=== PATIENT | male | born 1930 | race African-American/Black ===

== ENCOUNTER 2019-01-04 08:18 | Inpatient (IN) ==
[2019-01-04] MEDS ORDERED: NITROGLYCERIN 2% OINT 1 INCH/GM PACK TOP STA (09:49)
[2019-01-04] MEDS ORDERED: METOPROLOL TARTRATE 5 MG/5 ML VIAL IV STA (10:26)
[2019-01-04] MEDS ORDERED: ASPIRIN 325 MG TABLET PO ONE (10:44)
[2019-01-04] MEDS ORDERED: niCARdipine 25 MG/10 ML VIAL IV ONE (11:00)
[2019-01-04 11:16] LABS: Apearance,Urine CLEAR (Clear); Bacteria,Urine Occasional /HPF (Few); Bilirubin,Urine Negative (Negative); Blood, Urine Small mg/dL (Negative); Glucose,Urine (UA) Negative (Negative); Ketones,Urine Negative (Negative); Nitrite,Urine Negative (Negative); Protein,Urine Negative; RBC,Urine 6 /HPF (0-4); Urine Color Colorless (Yellow); Urine Specific Gravity 1.005 (1.001-1.035); Urine Urobilinogen < 2.0 EU/DL (0.2-1.0)
[2019-01-04] MEDS: niCARdipine INJ 25 MG in SODIUM CHLORIDE 0.9% 240 ML IV PRN ×2 (11:25→15:45)
[2019-01-04] MEDS ORDERED: DOCUSATE SODIUM 100 MG CAPSULE PO PRN (12:24)
[2019-01-04] MEDS: ENOXAPARIN 40 MG/0.4 ML SYRINGE SUBCUT SCH (12:53)
[2019-01-04 13:04] LABS: Risk Ratio 3.51; VLDL CHOLESTEROL 14.8 MG/DL
[2019-01-04] MEDS: SIMVASTATIN 10 MG TABLET PO SCH (21:26)
[2019-01-05 04:12] LABS: Basophils % 0.6 % (0.0-0.8); Eosinophils # 0.2 10*3/uL (0.0-0.87); Eosinophils % 3.4 % (0.00-10.9); Hematocrit 34.6 VOL% (42.0-52.0); Hemoglobin 10.8 GM/DL (14.0-18.0); Immature Granulocytes % 0.2 %; Immature Granulocytes Absolute 0.01 #; Lymphocytes # 1.5 10*3/uL (1.4-4.0); Lymphocytes % 31.9 % (21.2-54.2); Mean Corpuscular HGB Conc 31.2 GM/DL (32-36); Mean Corpuscular Hemoglobin 28 PG (27-34); Mean Corpuscular Volume 88.7 FL (87-102); Mean Platelet Volume 12.4 FL (9.6-12.0); Monocytes # 0.6 10*3/uL (0.11-0.8); Monocytes % 11.6 % (1.7-12.7); Neutrophils # 2.5 10*3/uL (1.4-7.4); Neutrophils % 52.3 % (38.7-73.9); Platelet Count 171 T/CUMM (130-400); Red Cell Distribution Width 17.2 % (9.3-17.3); White Blood Count 4.7 T/CUMM (4-12)
[2019-01-05 04:50] LABS: Alanine Aminotransferase < 9 U/L (16-61); Albumin 3.1 G/DL (3.4-5.0); Alkaline Phosphatase 95 U/L (45-117); Aspartate Amino Transferase 10 U/L (0-37); Blood Urea Nitrogen 17 MG/DL (7-18); Calcium 8.1 MG/DL (8.5-10.1); Glucose 77 MG/DL (74-106); Osmolality,Calculated 281.3 MOS/KG (273-304); Potassium 3.2 MMOL/L (3.5-5.1); Sodium 141 MMOL/L (136-145); Total Protein 7.9 G/DL (6.4-8.3)
[2019-01-05] MEDS: LEVOTHYROXINE 25 MCG TABLET PO SCH (06:03)
[2019-01-05] MEDS: PANTOPRAZOLE 40 MG TABLET PO SCH (11:07)
[2019-01-05] MEDS: ASPIRIN 325 MG TABLET PO SCH (11:07)
[2019-01-05] MEDS: NIFEdipine 10 MG CAPSULE PO SCH ×2 (14:26→17:39)
[2019-01-05] MEDS: ENOXAPARIN 40 MG/0.4 ML SYRINGE SUBCUT SCH (14:26)
[2019-01-05] MEDS ORDERED: SPIRONOLACTONE 25 MG TABLET PO SCH (15:30)
[2019-01-05] MEDS ORDERED: hydrALAZINE 25 MG TABLET PO PRN (16:52)
[2019-01-05] MEDS: SIMVASTATIN 10 MG TABLET PO SCH (22:03)
[2019-01-06] MEDS: NIFEdipine 10 MG CAPSULE PO SCH ×4 (00:40→20:27)
[2019-01-06 04:55] LABS: Basophils % 0.4 % (0.0-0.8); Eosinophils # 0.3 10*3/uL (0.0-0.87); Eosinophils % 5.3 % (0.00-10.9); Hematocrit 34.1 VOL% (42.0-52.0); Immature Granulocytes % 0.2 %; Immature Granulocytes Absolute 0.01 #; Lymphocytes # 1.8 10*3/uL (1.4-4.0); Lymphocytes % 37.8 % (21.2-54.2); Mean Corpuscular HGB Conc 32.3 GM/DL (32-36); Mean Corpuscular Hemoglobin 28 PG (27-34); Mean Corpuscular Volume 87.2 FL (87-102); Monocytes # 0.5 10*3/uL (0.11-0.8); Neutrophils # 2.1 10*3/uL (1.4-7.4); Neutrophils % 45.3 % (38.7-73.9); Platelet Count 167 T/CUMM (130-400); Red Blood Count 3.91 MC/CUMM (3.8-5.5); Red Cell Distribution Width 17.1 % (9.3-17.3); White Blood Count 4.7 T/CUMM (4-12)
[2019-01-06 05:05] LABS: Alanine Aminotransferase < 6 U/L (16-61); Alkaline Phosphatase 90 U/L (45-117); Aspartate Amino Transferase 10 U/L (0-37); Blood Urea Nitrogen 24 MG/DL (7-18); Glucose 86 MG/DL (74-106); Osmolality,Calculated 283.3 MOS/KG (273-304); Potassium 3.2 MMOL/L (3.5-5.1); Sodium 141 MMOL/L (136-145); Total Protein 7.8 G/DL (6.4-8.3)
[2019-01-06] MEDS: LEVOTHYROXINE 25 MCG TABLET PO SCH (06:20)
[2019-01-06] MEDS ORDERED: POTASSIUM CHLORIDE RIDER 10 MEQ in PREMIX 1 EACH IV PRN (07:53)
[2019-01-06] MEDS: SPIRONOLACTONE 25 MG TABLET PO SCH (08:40)
[2019-01-06] MEDS: PANTOPRAZOLE 40 MG TABLET PO SCH (08:40)
[2019-01-06] MEDS: POTASSIUM CHLORIDE 20 MEQ TABLET PO PRN ×4 (08:40→15:05)
[2019-01-06] MEDS: ASPIRIN 325 MG TABLET PO SCH (08:40)
[2019-01-06] MEDS: ENOXAPARIN 40 MG/0.4 ML SYRINGE SUBCUT SCH (12:20)
[2019-01-06] MEDS: ALLOPURINOL 100 MG TABLET PO SCH (12:50)
[2019-01-06] MEDS ORDERED: NIFEdipine 10 MG CAPSULE PO SCH (15:00)
[2019-01-06] MEDS: hydrALAZINE 25 MG TABLET PO SCH ×2 (15:01→20:24)
[2019-01-06] MEDS: SIMVASTATIN 10 MG TABLET PO SCH (20:24)
[2019-01-07] MEDS: LEVOTHYROXINE 25 MCG TABLET PO SCH (06:01)
[2019-01-07 06:34] LABS: Basophils % 0.8 % (0.0-0.8); Eosinophils # 0.3 10*3/uL (0.0-0.87); Eosinophils % 5.3 % (0.00-10.9); Hematocrit 34.2 VOL% (42.0-52.0); Hemoglobin 10.7 GM/DL (14.0-18.0); Immature Granulocytes % 0.2 %; Immature Granulocytes Absolute 0.01 #; Lymphocytes # 1.7 10*3/uL (1.4-4.0); Lymphocytes % 35.1 % (21.2-54.2); Mean Corpuscular HGB Conc 31.3 GM/DL (32-36); Mean Corpuscular Hemoglobin 28 PG (27-34); Mean Corpuscular Volume 88.4 FL (87-102); Mean Platelet Volume 11.4 FL (9.6-12.0); Monocytes # 0.6 10*3/uL (0.11-0.8); Monocytes % 11.8 % (1.7-12.7); Neutrophils # 2.2 10*3/uL (1.4-7.4); Neutrophils % 46.8 % (38.7-73.9); Platelet Count 155 T/CUMM (130-400); Red Blood Count 3.87 MC/CUMM (3.8-5.5); Red Cell Distribution Width 17.1 % (9.3-17.3); White Blood Count 4.8 T/CUMM (4-12)
[2019-01-07 06:49] LABS: Alanine Aminotransferase < 9 U/L (16-61); Alkaline Phosphatase 91 U/L (45-117); Aspartate Amino Transferase 12 U/L (0-37); Blood Urea Nitrogen 28 MG/DL (7-18); Glucose 100 MG/DL (74-106); Osmolality,Calculated 280.7 MOS/KG (273-304); Sodium 138 MMOL/L (136-145); Total Protein 7.7 G/DL (6.4-8.3)
[2019-01-07] MEDS: hydrALAZINE 25 MG TABLET PO SCH (08:51)
[2019-01-07] MEDS: SPIRONOLACTONE 25 MG TABLET PO SCH (08:51)
[2019-01-07] MEDS: ASPIRIN 325 MG TABLET PO SCH (08:51)
[2019-01-07] MEDS: NIFEdipine 10 MG CAPSULE PO SCH (08:51)
[2019-01-07] MEDS: PANTOPRAZOLE 40 MG TABLET PO SCH (08:51)
[2019-01-07] MEDS: ALLOPURINOL 100 MG TABLET PO SCH (08:51)
[2019-01-07] MEDS: ENOXAPARIN 40 MG/0.4 ML SYRINGE SUBCUT SCH (12:00)
[2019-01-07 13:29] VITALS: BP 151/87
== END 2019-01-07 14:15 | disposition home or self-care (01) | DRG 69 ==
LOC: N.ED 08:18 → N.EDINP 09:59 → N.ICU 15:45 → N.5E 01-06 14:03
PROVIDERS: ADMIT Internal Medicine; ATTEND Internal Medicine

== ENCOUNTER 2021-06-02 20:10 | Inpatient (IN) ==
[2021-06-02 23:58] LABS: Basophils % 0.6 % (0.0-0.8); Eosinophils # 0.9 10*3/uL (0.0-0.87); Hematocrit 27.3 VOL% (42.0-52.0); Hemoglobin 8.4 GM/DL (14.0-18.0); Immature Granulocytes % 0.6 %; Immature Granulocytes Absolute 0.04 #; Lymphocytes # 0.7 10*3/uL (1.4-4.0); Lymphocytes % 10.1 % (21.2-54.2); Mean Corpuscular HGB Conc 30.8 GM/DL (32-36); Mean Corpuscular Volume 96.8 FL (87-102); NRBC # 0.03 10*3/uL; Neutrophils % 71.7 % (38.7-73.9); Platelet Count 89 T/CUMM (130-400); Red Blood Count 2.82 MC/CUMM (3.8-5.5); Red Cell Distribution Width 22.1 % (9.3-17.3); White Blood Count 7.2 T/CUMM (4-12)
[2021-06-03 00:13] LABS: Calcium 6.3 MG/DL (8.5-10.1); Potassium 3.8 MMOL/L (3.5-5.1)
[2021-06-03] MEDS ORDERED: DEXTROSE 50% 25 GM/50 ML VIAL IV PRN (00:17)
[2021-06-03] MEDS ORDERED: GLUCAGON 1 MG VIAL IM PRN (00:17)
[2021-06-03] MEDS ORDERED: ACETAMINOPHEN 325 MG TABLET PO PRN (00:17)
[2021-06-03] MEDS ORDERED: ONDANSETRON 4 MG/2 ML VIAL IV PRN (00:17)
[2021-06-03 00:36] LABS: Band Neutrophils 1 % (0-10); Eosinophils 14 % (0-10); Hypochromasia Slight; Lymphocytes 5 % (20-55); Platelet Estimate Decreased; Segmented Neutrophils 77 % (50-85); Total Cells Counted 100
[2021-06-03] MEDS: LACTATED RINGERS 1,000 ML IV SCH ×2 (04:35→14:52)
[2021-06-03 05:40] LABS: Basophils # 0.1 10*3/uL (0.0-0.2); Basophils % 0.9 % (0.0-0.8); Eosinophils % 13.7 % (0.00-10.9); Hematocrit 26.8 VOL% (42.0-52.0); Hemoglobin 8.5 GM/DL (14.0-18.0); Immature Granulocytes % 0.8 %; Immature Granulocytes Absolute 0.06 #; Lymphocytes # 0.8 10*3/uL (1.4-4.0); Lymphocytes % 10.2 % (21.2-54.2); Mean Corpuscular HGB Conc 31.7 GM/DL (32-36); Mean Corpuscular Volume 95.4 FL (87-102); Monocytes % 5.3 % (1.7-12.7); NRBC # 0.04 10*3/uL; Neutrophils % 69.1 % (38.7-73.9); Platelet Count 83 T/CUMM (130-400); Red Blood Count 2.81 MC/CUMM (3.8-5.5); Red Cell Distribution Width 21.8 % (9.3-17.3); White Blood Count 7.6 T/CUMM (4-12)
[2021-06-03 06:08] LABS: Eosinophils 12 % (0-10); Lymphocytes 9 % (20-55); Platelet Estimate Decreased; Segmented Neutrophils 76 % (50-85); Total Cells Counted 100
[2021-06-03 06:26] LABS: Thyroid Stimulating Hormone 0.621 uIU/ml (0.358-3.74)
[2021-06-03 07:04] LABS: % Iron Saturation 17.7 % (18-50)
[2021-06-03] MEDS ORDERED: HEPARIN 5,000 UNIT/1 ML VIAL SUBCUT SCH (09:00)
[2021-06-03] MEDS: ASPIRIN CHEW 81 MG TABLET PO SCH (09:50)
[2021-06-03 10:20] LABS: Bacteria,Urine Occasional /HPF (Few); Bilirubin,Urine Negative (Negative); Blood, Urine Large mg/dL (Negative); Glucose,Urine (UA) Negative (Negative); Hyaline Casts,Urine 14 /LPF (0-3); Ketones,Urine Negative (Negative); Mucus,Urine Occasional /LPF (Occasional); Nitrite,Urine Negative (Negative); Protein,Urine 100 MG/DL; RBC,Urine 80 /HPF (0-4); Urine Appearance CLEAR (Clear); Urine Color Yellow (Yellow); Urine Specific Gravity 1.011 (1.001-1.035); Urine Urobilinogen < 2.0 EU/DL (0.2-1.0)
[2021-06-03] MEDS: FERRIC GLUCONATE COMPLEX 125 MG in SODIUM CHLORIDE 0.9% 100 ML IV SCH (15:11)
[2021-06-04] MEDS: LACTATED RINGERS 1,000 ML IV SCH ×3 (02:37→15:37)
[2021-06-04 03:16] LABS: Basophils # 0.1 10*3/uL (0.0-0.2); Basophils % 0.8 % (0.0-0.8); Eosinophils # 0.8 10*3/uL (0.0-0.87); Hematocrit 26.6 VOL% (42.0-52.0); Hemoglobin 8.5 GM/DL (14.0-18.0); Immature Granulocytes % 0.8 %; Immature Granulocytes Absolute 0.05 #; Lymphocytes # 0.7 10*3/uL (1.4-4.0); Lymphocytes % 10.5 % (21.2-54.2); Mean Corpuscular Volume 94.7 FL (87-102); Monocytes % 5.6 % (1.7-12.7); NRBC # 0.04 10*3/uL; Neutrophils % 70.3 % (38.7-73.9); Platelet Count 54 T/CUMM (130-400); Red Blood Count 2.81 MC/CUMM (3.8-5.5); Red Cell Distribution Width 22.2 % (9.3-17.3); White Blood Count 6.7 T/CUMM (4-12)
[2021-06-04 03:42] LABS: Albumin 2.1 G/DL (3.4-5.0); Osmolality,Calculated 316.4 MOS/KG (273-304); Potassium 3.4 MMOL/L (3.5-5.1)
[2021-06-04 03:43] LABS: Bilirubin,Total 0.6 MG/DL (0.20-1.00); Calcium 5.9 MG/DL (8.5-10.1); Osmolality,Calculated 316.4 MOS/KG (273-304); Potassium 3.3 MMOL/L (3.5-5.1); Total Protein 5.2 G/DL (6.4-8.2)
[2021-06-04 03:45] LABS: Parathyroid Hormone Intact 373.8 PG/ML (18.4-80.1)
[2021-06-04 03:52] LABS: Eosinophils 9 % (0-10); Lymphocytes 8 % (20-55); Segmented Neutrophils 81 % (50-85); Total Cells Counted 100
[2021-06-04 03:53] LABS: Hypochromasia 1+; Microcytosis 1+; Ovalocytes Slight; Platelet Estimate Decreased
[2021-06-04 04:18] LABS: Risk Ratio 4.71; VLDL Cholesterol 28.8 MG/DL
[2021-06-04] MEDS: LEVOTHYROXINE 25 MCG TABLET PO SCH (06:06)
[2021-06-04 06:57] LABS: Protein/Creatinine Ratio,Urine 1.1 RATIO
[2021-06-04] MEDS ORDERED: POTASSIUM CHLORIDE 20 MEQ TABLET PO ONE (07:20)
[2021-06-04 08:51] LABS: Total Protein (Chem) 5.3 G/DL (6.4-8.3)
[2021-06-04] MEDS ORDERED: CHOLECALCIFEROL 1,000 UNIT TABLET PO SCH (09:00)
[2021-06-04] MEDS: ASPIRIN CHEW 81 MG TABLET PO SCH (09:48)
[2021-06-04 10:18] LABS: Albumin (SPE) 2.7 G/DL (3.2-5.3); Albumin (SPE) Rel % 51.6 %; Alpha 1 (SPE) 0.3 G/DL (0.1-0.4); Alpha 2 (SPE) 0.8 G/DL (0.4-1.0); Alpha 2 (SPE) Rel % 15.9 %; Beta (SPE) 0.5 G/DL (0.5-1.1); Beta (SPE) Rel % 8.8 %; Gamma (SPE) Rel % 18.7 %
[2021-06-04] MEDS: FERRIC GLUCONATE COMPLEX 125 MG in SODIUM CHLORIDE 0.9% 100 ML IV SCH (10:43)
[2021-06-04] MEDS: MEGESTROL 400 MG/10 ML UDCUP PO SCH ×2 (16:56→21:05)
[2021-06-04] MEDS: OLANZapine 5 MG TABLET PO SCH (21:06)
[2021-06-05] MEDS: LACTATED RINGERS 1,000 ML IV SCH ×2 (02:15→17:03)
[2021-06-05 05:57] LABS: Basophils # 0.1 10*3/uL (0.0-0.2); Eosinophils # 0.7 10*3/uL (0.0-0.87); Eosinophils % 9.9 % (0.00-10.9); Hematocrit 28.7 VOL% (42.0-52.0); Hemoglobin 8.8 GM/DL (14.0-18.0); Immature Granulocytes % 0.9 %; Immature Granulocytes Absolute 0.06 #; Lymphocytes % 14.1 % (21.2-54.2); Mean Corpuscular HGB Conc 30.7 GM/DL (32-36); Mean Corpuscular Volume 96.6 FL (87-102); Monocytes % 8.9 % (1.7-12.7); NRBC # 0.16 10*3/uL; Neutrophils % 65.2 % (38.7-73.9); Red Blood Count 2.97 MC/CUMM (3.8-5.5); Red Cell Distribution Width 22.8 % (9.3-17.3); White Blood Count 6.7 T/CUMM (4-12)
[2021-06-05 06:02] LABS: Platelet Count 54 T/CUMM (130-400)
[2021-06-05 06:18] LABS: Eosinophils 4 % (0-10); Hypochromasia 1+; Lymphocytes 12 % (20-55); Microcytosis 1+; Nucleated Red Blood Cells 4 (0-5); Platelet Estimate Decreased; Segmented Neutrophils 76 % (50-85); Total Cells Counted 100
[2021-06-05] MEDS: LEVOTHYROXINE 25 MCG TABLET PO SCH (06:33)
[2021-06-05 06:43] LABS: Potassium 4.1 MMOL/L (3.5-5.1)
[2021-06-05 06:56] LABS: Immunoglobulin A 220 MG/DL (70-400); Immunoglobulin G 976 MG/DL (700-1600); Immunoglobulin M 42 MG/DL (40-230)
[2021-06-05] MEDS ORDERED: MAGNESIUM SULF RIDER 2 GM/50 ML PREMIX IV ONE (07:17)
[2021-06-05] MEDS ORDERED: ERGOCALCIFEROL 50,000 UNIT CAPSULE PO SCH (09:00)
[2021-06-05] MEDS ORDERED: PANTOPRAZOLE 40 MG TABLET PO SCH (09:00)
[2021-06-05] MEDS: MEGESTROL 400 MG/10 ML UDCUP PO SCH ×4 (09:56→20:42)
[2021-06-05] MEDS: DOCUSATE SODIUM 100 MG CAPSULE PO SCH (09:57)
[2021-06-05 10:46] LABS: Immuno Free Light Chain Kappa 7.28 MG/DL (0.33-1.94); Immuno Free Light Chain Lambda 5.62 MG/DL (0.57-2.63)
[2021-06-05] MEDS: FERRIC GLUCONATE COMPLEX 125 MG in SODIUM CHLORIDE 0.9% 100 ML IV SCH (12:30)
[2021-06-05] MEDS: OLANZapine 5 MG TABLET PO SCH (20:40)
[2021-06-06] MEDS: LACTATED RINGERS 1,000 ML IV SCH ×3 (00:20→14:05)
[2021-06-06 04:57] LABS: Basophils # 0.1 10*3/uL (0.0-0.2); Basophils % 0.8 % (0.0-0.8); Eosinophils # 0.6 10*3/uL (0.0-0.87); Eosinophils % 8.9 % (0.00-10.9); Hematocrit 25.5 VOL% (42.0-52.0); Hemoglobin 8.2 GM/DL (14.0-18.0); Immature Granulocytes % 1.8 %; Immature Granulocytes Absolute 0.11 #; Lymphocytes # 1.1 10*3/uL (1.4-4.0); Lymphocytes % 17.3 % (21.2-54.2); Mean Corpuscular HGB Conc 32.2 GM/DL (32-36); Mean Corpuscular Volume 94.8 FL (87-102); Monocytes % 8.6 % (1.7-12.7); Neutrophils % 62.6 % (38.7-73.9); Platelet Count 67 T/CUMM (130-400); Red Blood Count 2.69 MC/CUMM (3.8-5.5); Red Cell Distribution Width 22.7 % (9.3-17.3); White Blood Count 6.2 T/CUMM (4-12)
[2021-06-06 05:18] LABS: Osmolality,Calculated 292.3 MOS/KG (273-304); Potassium 4.4 MMOL/L (3.5-5.1)
[2021-06-06 05:24] LABS: Eosinophils 6 % (0-10); Hypochromasia 1+; Lymphocytes 13 % (20-55); Microcytosis 1+; Nucleated Red Blood Cells 3 (0-5); Platelet Estimate Decreased; Segmented Neutrophils 70 % (50-85); Total Cells Counted 100
[2021-06-06] MEDS: LEVOTHYROXINE 25 MCG TABLET PO SCH (06:03)
[2021-06-06 08:05] LABS: Immunoglobulin A (Chem) 220 MG/DL (70-400); Immunoglobulin G (Chem) 976 MG/DL (700-1600); Random Urine Protein (Bench) 134 MG/DL (<11.9)
[2021-06-06 08:06] LABS: Immunoglobulin M (Chem) 42 MG/DL (40-230)
[2021-06-06] MEDS: DOCUSATE SODIUM 100 MG CAPSULE PO SCH (09:38)
[2021-06-06] MEDS: MEGESTROL 400 MG/10 ML UDCUP PO SCH ×2 (09:38→14:06)
[2021-06-06] MEDS: FERRIC GLUCONATE COMPLEX 125 MG in SODIUM CHLORIDE 0.9% 100 ML IV SCH (09:39)
[2021-06-06 10:24] LABS: Albumin (UPER) 92.5 MG/DL; Alpha 1 (UPER) 13.1 MG/DL; Alpha 1 (UPER) Rel% 9.8 %; Alpha 2 (UPER) 8.8 MG/DL; Alpha 2 (UPER) Rel % 6.6 %; Beta (UPER) 6.7 MG/DL; Gamma (UPER) 12.9 MG/DL; Gamma (UPER) Rel % 9.6 %
[2021-06-06 11:36] VITALS: BP 113/61
[2021-06-08] MEDS ORDERED: DEXAMETHASONE 4 MG TABLET PO SCH (09:00)
== END 2021-06-06 14:48 | disposition hospice, home (50) | DRG 683 ==
LOC: N.TELES 21:26 → SUATTDRO 21:26
PROVIDERS: ADMIT Internal Medicine; ATTEND Internal Medicine